=== PATIENT | male | born 1985 | race Caucasian/White ===

== ENCOUNTER 2016-07-25 13:26 | Emergency (ER) | payer OTHER ==
--- NOTE | 2016-07-25 13:41 | CPEKG ---
Heart Rate: 82 RR Interval: 732 P-R Interval: 168 QRSD Interval: 100 QT Interval: 416 QTC Interval: 486 P Selfridge: 56 QRS Selfridge: 56 T Wave Selfridge: 28 EKG Severity - BORDERLINE ECG - EKG Impression: SINUS RHYTHM EKG Impression: BORDERLINE PROLONGED QT INTERVAL Electronically Signed By: Sylvester Rodriguez 25-Jul-2016 20:54:24
--- NOTE | 2016-07-25 13:56 | EDPHY ---
H & P Time Seen by Provider: 07/25/16 13:40 HPI/ROS: Chief complaint. Chest pain HPI. Patient is a 30-year-old male visiting from [place] here with some chest tightness facial numbness and nausea that began this morning. He and his arrived from [place] 1 week ago and have been skiing in [place]. They returned to [place] yesterday as his 's parents live here in [place]. They had fair amount alcohol to drink last night and this morning he was a little bit nauseated. He has a history of GERD and takes Zantac for this. He had GERD sensation radiating up into his chest. However then he developed chest tightness and numbness to his face. No radiation of his chest discomfort. No shortness of breath. He does feel anxious. No unusual leg pain or swelling ROS Constitutional. no fever/chills, no weakness Eyes. no problems with vision ENT. no sore throat, no nasal drainage Cardiovascular. Chest tightness Respiratory. no shortness of breath, no cough Abdominal. Nausea . no problems urinating MS. no calf pain/swelling, no neck/back pain, no joint pain Skin. no rash Lymph. no swollen glands Neuro. Facial numbness Past Medical/Surgical History: Anxiety, GERD Family history father has hypertension and dyslipidemia. No early coronary artery disease Social History: , nonsmoker, alcohol last night Smoking Status: Never smoked Physical Exam: General Appearance: Alert well-developed male tense and anxious appearing moderate distress vital signs significant for blood pressure 169/99 Eyes: Pupils equal and round no pallor or injection. ENT, Mouth: Mucous membranes are moist. Respiratory: There are no retractions, lungs are clear to auscultation. Cardiovascular: Regular rate and rhythm. Gastrointestinal: Abdomen is soft and nontender, no masses, bowel sounds normal. Neurological: Awake and alert, sensory and motor exams grossly normal. Cranial nerves intact. Speech is normal. There is no pronator drift. Qpmsem-[id number]-yefc [id number] are intact bilaterally Skin: Warm and dry, no rashes. Musculoskeletal: Neck is supple nontender. Extremities symmetrical, full range of motion. Psychiatric: Patient is oriented X 3, there is no agitation. Constitutional: Initial Vital Signs Temperature (C) 36.8 C 07/25/16 13:35 Heart Rate 65 07/25/16 13:35 Respiratory Rate 22 H 07/25/16 13:35 Blood Pressure 169/99 H 07/25/16 13:35 O2 Sat (%) 98 07/25/16 13:35 O2 Delivery Mode Room Air Allergies/Adverse Reactions: shellfish derived Allergy (Verified 07/25/16 13:38) Home Medications: Medication Instructions Recorded LORazepam [Ativan] 1 mg PO Q6-8PRN PRN #10 tab 07/25/16 Zantac 07/25/16 Medical Decision Making - Diagnostics EKG Interpretation: EKG interpreted by me shows normal sinus rhythm with normal interval and axis. QRS is normal there is no significant ST elevation or depression. No arrhythmia. Heart rate is 82 Procedures: IV normal saline, monitor. Ativan IV. Pepcid IV ED Course/Re-evaluation: Patient got good relief from IV Ativan. He also got good relief from GI cocktail. Re-evaluation 3:30 p.m. patient is stable. The patient, his , and I discussed imaging and lab results. We discussed treatment plan including criteria for return importance of follow-up further evaluation. He expresses understanding and agreement Differential Diagnosis: Serial troponins were negative. EKG is normal. I considered acute coronary syndrome, pneumothorax, pulmonary embolus. This work is normal. I suspect that this is a combination of GERD and anxiety as a cause of his symptoms - Data Points Laboratory Results: Laboratory Results 07/25/16 13:40 07/25/16 13:40 07/25/16 07/25/16 07/25/16 14:45 13:40 13:40 WBC RBC Hgb Hct MCV MCH MCHC RDW Plt Count MPV Neut % (Auto) Lymph % (Auto) Toole % (Auto) Eos % (Auto) Baso % (Auto) Nucleat RBC Rel Count Absolute Neuts (auto) Absolute Lymphs (auto) Absolute Monos (auto) Absolute Eos (auto) Absolute Basos (auto) Absolute Nucleated RBC Immature Gran % Immature Gran # D-Dimer < 0.27 ug/mLFEU ug/mLFEU (0.00-0.50) Sodium 138 mEq/L mEq/L (134-144) Potassium 4.2 mEq/L mEq/L (3.5-5.2) Chloride 100 mEq/L mEq/L (97-110) Carbon Dioxide 23 mEq/l mEq/l (22-31) Anion Gap 15 mEq/L mEq/L (8-16) BUN 14 mg/dL mg/dL (7-23) Creatinine 0.9 mg/dL mg/dL (0.7-1.3) Estimated GFR > 60 Glucose 109 mg/dL H mg/dL (70-100) Calcium 9.9 mg/dL mg/dL (8.5-10.4) Troponin I < 0.012 ng/mL ng/mL < 0.012 ng/mL ng/mL (0-0.034) (0-0.034) 07/25/16 13:40 WBC 6.91 10^3/uL 10^3/uL (3.80-9.50) RBC 4.64 10^6/uL 10^6/uL (4.40-6.38) Hgb 14.6 g/dL g/dL (13.7-17.5) Hct 42.1 % % (40.0-51.0) MCV 90.7 fL fL (81.5-99.8) MCH 31.5 pg pg (27.9-34.1) MCHC 34.7 g/dL g/dL (32.4-36.7) RDW 13.2 % % (11.5-15.2) Plt Count 296 10^3/uL 10^3/uL (150-400) MPV 10.1 fL fL (8.7-11.7) Neut % (Auto) 44.4 % % (39.3-74.2) Lymph % (Auto) 40.1 % % (15.0-45.0) Toole % (Auto) 11.3 % % (4.5-13.0) Eos % (Auto) 3.0 % % (0.6-7.6) Baso % (Auto) 0.9 % % (0.3-1.7) Nucleat RBC Rel Count 0.0 % % (0.0-0.2) Absolute Neuts (auto) 3.07 10^3/uL 10^3/uL (1.70-6.50) Absolute Lymphs (auto) 2.77 10^3/uL 10^3/uL (1.00-3.00) Absolute Monos (auto) 0.78 10^3/uL 10^3/uL (0.30-0.80) Absolute Eos (auto) 0.21 10^3/uL 10^3/uL (0.03-0.40) Absolute Basos (auto) 0.06 10^3/uL 10^3/uL (0.02-0.10) Absolute Nucleated RBC 0.00 10^3/uL 10^3/uL (0-0.01) Immature Gran % 0.3 % % (0.0-1.1) Immature Gran # 0.02 10^3/uL 10^3/uL (0.00-0.10) D-Dimer Sodium Potassium Chloride Carbon Dioxide Anion Gap BUN Creatinine Estimated GFR Glucose Calcium Troponin I Medications Given: Discontinued Medications Al Hydroxide/Mg Hydroxide (Maalox Susp) 30 ml PO ONCE ONE Stop: 07/25/16 14:41 Last Admin: 07/25/16 14:52 Dose: 30 ml Sodium Chloride (Ns) 1,000 mls @ 0 mls/hr IV ONCE ONE PRN Reason: Wide Open Stop: 07/25/16 13:53 Last Admin: 07/25/16 14:11 Dose: 1,000 mls Famotidine/Sodium Chloride (Pepcid 20 Mg (Premix)) 50 mls @ 200 mls/hr IV EDNOW ONE Stop: 07/25/16 14:11 Last Admin: 07/25/16 14:10 Dose: 50 mls Lidocaine (Lidocaine 2% Viscous) 15 ml PO ONCE ONE Stop: 07/25/16 14:41 Last Admin: 07/25/16 14:52 Dose: 15 ml Lorazepam (Ativan Injection) 1 mg IVP EDNOW ONE Stop: 07/25/16 13:54 Last Admin: 07/25/16 14:11 Dose: 1 mg Departure - Departure Disposition: Home, Routine, Self-Care Clinical Impression: Chest pain Qualifiers: Chest pain type: other chest pain Qualified Code(s): R07.89 - Other chest pain ; R07.8 - Other chest pain Condition: Good Instructions: Gastroesophageal Reflux Disease (ED) Additional Instructions: Continue Zantac. Maalox or Mylanta in addition as needed for discomfort. Ativan as needed for anxiety when necessary. Return for worsening symptoms which recheck by your regular physician upon home to [place] this coming week Stand Alone Forms: Airline Excuse Prescriptions: LORazepam [Ativan] 1 mg PO Q6-8PRN PRN #10 tab PRN Reason: Anxiety
[2016-07-25 13:57] LABS: % IMMATURE GRANULYOCYTES 0.3 % (0.0-1.1); ABSOLUTE IMMATURE GRANULOCYTES 0.02 10^3/uL (0.00-0.10); ADD DIFF? NO; ADD MORPH? NO; ADD SCAN? NO; ATYPICAL LYMPHOCYTE FLAG 20 (0-99); FRAGMENT RBC FLAG 0 (0-99); HEMATOCRIT 42.1 % (40.0-51.0); HEMOGLOBIN 14.6 g/dL (13.7-17.5); LEFT SHIFT FLG 0 (0-99); LIPEMIA HEMOLYSIS FLAG 90 (0-99); MEAN CELL HEMOGLOBIN 31.5 pg (27.9-34.1); MEAN CELL HEMOGLOBIN CONCENTR. 34.7 g/dL (32.4-36.7); MEAN CELL VOLUME 90.7 fL (81.5-99.8); MEAN PLATELET VOLUME 10.1 fL (8.7-11.7); PLATELET CLUMPS FLAG 0 (0-99); PLATELET COUNT 296 10^3/uL (150-400); RED BLOOD CELL COUNT 4.64 10^6/uL (4.40-6.38); RED CELL DISTRIBUTION WIDTH 13.2 % (11.5-15.2)
[2016-07-25 14:09] LABS: ANION GAP 15 mEq/L (8-16); CALCIUM 9.9 mg/dL (8.5-10.4); CARBON DIOXIDE 23 mEq/l (22-31); CHLORIDE 100 mEq/L (97-110); CREATININE 0.9 mg/dL (0.7-1.3); GLOMERULAR FILTRATION RATE > 60; GLUCOSE 109 mg/dL (70-100); POTASSIUM 4.2 mEq/L (3.5-5.2); SODIUM 138 mEq/L (134-144)
[2016-07-25] MEDS: FAMOTIDINE 20 MG/NACL 50 ML IV ONE (14:10)
[2016-07-25] MEDS: NS 1,000 ML IV ONE (14:11)
[2016-07-25] MEDS: LORazepam 2 MG/ML INJ IVP ONE (14:11)
[2016-07-25 14:21] LABS: TROPONIN I < 0.012 ng/mL (0-0.034)
[2016-07-25] MEDS: LIDOCAINE 2% VISCOUS 15 ML UDCUP PO ONE (14:52)
[2016-07-25] MEDS: MAG HYDROX/AL HYDROX/SIMETH 30 ML UDCUP PO ONE (14:52)
[2016-07-25 15:46] VITALS: BP 125/83; PULSE 73; RESP 18; TEMP 97.9; O2SAT 96
== END 2016-07-25 15:46 | disposition home or self-care (01) ==
DX: R07.89 Other chest pain (principal)
CPT/HCPCS: 96374; J2060